=== PATIENT | male | born 1940 ===

== ENCOUNTER 2021-04-02 13:13 | Emergency (ER) | payer MEDICARE, BC ==
[2021-04-02] MEDS: HYDROmorphone 2 MG/ML SDV IVPUSH ONE ×2 (13:38→13:45)
--- NOTE | 2021-04-02 16:11 | EDM.PDOC ---
ED HPI GENERAL MEDICAL PROBLEM - General Chief Complaint: Chest Pain Stated Complaint: CHEST PAIN Time Seen by Provider: 04/02/21 14:23 - History of Present Illness INITIAL COMMENTS - FREE TEXT/NARRATIVE: Pt comes in with C/O chest pain that started after eating a late breakfast today. He states the pain is bad and he has been vomiting also. He did take 2 Nitro which helped his pain. He was just seen in the ER in [facility] for a workup for UTI 2 days ago. He does have hx of chest pain, but not usually this bad. He has had an HI 2 yrs ago, but did not get any stents. 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 Chest Pain Score (Numeric/FACES): 10 - Related Data Allergies Allergy/AdvReac Type Severity Reaction Status Date / Time codeine Allergy Other Verified 04/02/21 14:08 morphine Allergy Other Verified 04/02/21 14:08 Home Meds: Home Meds Aspirin 325 mg PO DAILY 04/02/21 [History] Cholecalciferol (Vitamin D3) [Vitamin D3] 50 mcg PO BID 04/02/21 [History] Ciprofloxacin HCl [Cipro] 500 mg PO BID 04/02/21 [History] Glimepiride 4 mg PO BIDMEALS 04/02/21 [History] Midodrine 5 mg PO TID 04/02/21 [History] Nitroglycerin [Nitrostat] 0.4 mg SL Q4HR 04/02/21 [History] PARoxetine HCL [Paroxetine HCl] 40 mg PO DAILY 04/02/21 [History] buPROPion [Wellbutrin SR] 150 mg PO DAILY 04/02/21 [History] metFORMIN [Glucophage] 500 mg PO BID 04/02/21 [History] ED ROS GENERAL - Review of Systems Review Of Systems: Comprehensive ROS is negative, except as noted in HPI. Cardiovascular: Reports: Chest Pain GI/Abdominal: Reports: Vomiting ED EXAM, GENERAL - Physical Exam Exam: See Below Free Text/Narrative:: The pt vomited once here in the ER when arriving. He was given Dilaudid which controlled his pain well. EKG does not she any ST elevation or depression with NSR. IV was started - Zofran was given. Pt's condition continued to improve over the next 20 minutes or so. Labs show a low CO2 level, otherwise are nml. Trop is negative. He will be monitored here as an ER hold, and will repeat the Troponin in 4 hours. I think he may be dealing with Angina, but will discuss further after repeat tests are done. Course - Vital Signs Last Recorded V/S: Last Vital Signs Temp 97.8 F 04/02/21 13:15 Pulse 100 04/02/21 17:58 Resp 14 04/02/21 17:58 BP 169/83 H 04/02/21 18:18 Pulse Ox 93 L 04/02/21 17:58 - Orders/Labs/Meds Orders: Active Orders 24 hr Category Date Time Status EKG Documentation Completion [RC] ASDIRECTED Care 04/02/21 14:37 Active Chest 1V Frontal [CR] Stat Exams 04/02/21 13:29 Taken EKG 12 Lead [EK] Routine Ther 04/02/21 14:36 Ordered EKG 12 Lead [EK] Routine Ther 04/02/21 17:30 Ordered EKG 12 Lead [EK] Stat Ther 04/02/21 13:28 Ordered Labs: Laboratory Tests 04/02/21 04/02/21 04/02/21 Range/Units 13:25 13:28 13:28 WBC 13.0 H (4.0-11.0) K/uL RBC 3.99 L (4.50-6.50) M/uL Hgb 12.1 L (13.0-18.0) g/dL Hct 36.7 L (40.0-54.0) % MCV 92 (76-96) fL MCH 30.3 (27.0-32.0) pg MCHC 33.0 (31.0-35.0) g/dL RDW 13.5 (11.0-16.0) % Plt Count 322 (150-400) K/uL MPV 9.8 (6.0-10.0) fL Neut % (Auto) 58.5 (45.0-70.0) % Lymph % (Auto) 30.9 (20.0-40.0) % Harper % (Auto) 8.5 (3.0-10.0) % Eos % (Auto) 1.9 (1.0-5.0) % Baso % (Auto) 0.2 (0.0-0.5) % Neut # (Auto) 7.59 H (2.00-7.50) K/uL Lymph # (Auto) 4.02 H (1.50-4.00) K/uL Harper # (Auto) 1.11 H (0.20-0.80) K/uL Eos # (Auto) 0.25 (0.04-0.40) K/uL Baso # (Auto) 0.03 (0.02-0.10) K/uL PT 10.1 (9.0-11.5) sec INR 1.0 (1.0-3.5) Sodium (136-145) mmol/L Potassium (3.5-5.1) mmol/L Chloride (98-107) mmol/L Carbon Dioxide (21.0-32.0) mmol/L Anion Gap (5.0-15.0) mmol/L BUN (8-26) mg/dL Creatinine (0.70-1.30) mg/dL Est Cr Clr Drug Dosing Estimated GFR (MDRD) (>60) MLS/MIN BUN/Creatinine Ratio (6-25) Glucose (74-100) mg/dL POC Glucose 223 H (74-110) mg/dL Calcium (8.5-10.1) mg/dL Total Bilirubin (0.0-1.0) mg/dL AST (15-37) U/L ALT (12-78) U/L Alkaline Phosphatase (46-116) U/L Troponin I (0.000-0.060) ng/mL Total Protein (6.4-8.2) g/dL Albumin (3.4-5.0) g/dL Globulin (2.2-4.2) g/dL Albumin/Globulin Ratio (0.8-2.0) 04/02/21 04/02/21 Range/Units 13:28 17:30 WBC (4.0-11.0) K/uL RBC (4.50-6.50) M/uL Hgb (13.0-18.0) g/dL Hct (40.0-54.0) % MCV (76-96) fL MCH (27.0-32.0) pg MCHC (31.0-35.0) g/dL RDW (11.0-16.0) % Plt Count (150-400) K/uL MPV (6.0-10.0) fL Neut % (Auto) (45.0-70.0) % Lymph % (Auto) (20.0-40.0) % Harper % (Auto) (3.0-10.0) % Eos % (Auto) (1.0-5.0) % Baso % (Auto) (0.0-0.5) % Neut # (Auto) (2.00-7.50) K/uL Lymph # (Auto) (1.50-4.00) K/uL Harper # (Auto) (0.20-0.80) K/uL Eos # (Auto) (0.04-0.40) K/uL Baso # (Auto) (0.02-0.10) K/uL PT (9.0-11.5) sec INR (1.0-3.5) Sodium 136 (136-145) mmol/L Potassium 4.7 (3.5-5.1) mmol/L Chloride 103 (98-107) mmol/L Carbon Dioxide 14.5 L* (21.0-32.0) mmol/L Anion Gap 23.2 H (5.0-15.0) mmol/L BUN 29 H (8-26) mg/dL Creatinine 2.10 H (0.70-1.30) mg/dL Est Cr Clr Drug Dosing TNP Estimated GFR (MDRD) 31 L (>60) MLS/MIN BUN/Creatinine Ratio 13.8 (6-25) Glucose 237 H (74-100) mg/dL POC Glucose (74-110) mg/dL Calcium 9.6 (8.5-10.1) mg/dL Total Bilirubin 0.5 (0.0-1.0) mg/dL AST 31 (15-37) U/L ALT 25 (12-78) U/L Alkaline Phosphatase 83 (46-116) U/L Troponin I < 0.017 0.059 D (0.000-0.060) ng/mL Total Protein 7.8 (6.4-8.2) g/dL Albumin 3.5 (3.4-5.0) g/dL Globulin 4.3 H (2.2-4.2) g/dL Albumin/Globulin Ratio 0.8 (0.8-2.0) Meds: Medications Discontinued Medications Generic Name Dose Route Start Last Admin Trade Name Katia PRN Reason Stop Dose Admin Isosorbide Mononitrate 30 mg 04/02/21 18:17 04/02/21 18:18 Isosorbide Mononitrate 30 Mg Tab.Er PO 04/02/21 18:18 30 mg ONETIME ONE Administration Isosorbide Mononitrate Confirm 04/02/21 18:17 04/02/21 18:18 Isosorbide Mononitrate 30 Mg Tab.Er Administered 04/02/21 18:18 Not Given Dose 30 mg .ROUTE .STK-MED ONE Departure - Departure Time of Disposition: 18:30 Disposition: Home, Self-Care 01 Condition: Good Clinical Impression: Angina pectoris Referrals: PCP,None [Primary Care Provider] - Forms: ED Department Discharge Additional Instructions: Start Imdur 30 mg daily. Light duty activity as tolerated. Re check in the clinic this week. Sepsis Event Note (ED) - Focused Exam Vital Signs: Vital Signs Temp Pulse Resp BP BP Pulse Ox 04/02/21 18:18 169/83 H 04/02/21 17:58 100 14 95/59 L 93 L 04/02/21 14:45 90 12 111/61 93 L 04/02/21 14:15 97 19 102/55 L 94 L 04/02/21 14:00 104 H 13 105/61 94 L 04/02/21 13:45 102 H 13 103/61 04/02/21 13:30 108 H 13 112/61 95 04/02/21 13:15 97.8 F 121 H 20 143/82 H 97 - My Orders Last 24 Hours: My Active Orders 04/02/21 13:28 EKG 12 Lead [EK] Stat 04/02/21 13:29 Chest 1V Frontal [CR] Stat 04/02/21 14:36 EKG 12 Lead [EK] Routine 04/02/21 14:37 EKG Documentation Completion [RC] ASDIRECTED 04/02/21 17:30 EKG 12 Lead [EK] Routine - Assessment/Plan Last 24 Hours: My Active Orders 04/02/21 13:28 EKG 12 Lead [EK] Stat 04/02/21 13:29 Chest 1V Frontal [CR] Stat 04/02/21 14:36 EKG 12 Lead [EK] Routine 04/02/21 14:37 EKG Documentation Completion [RC] ASDIRECTED 04/02/21 17:30 EKG 12 Lead [EK] Routine
[2021-04-02] MEDS ORDERED: Isosorbide Mononitrate 30 MG Tab.ER ONE (18:17)
[2021-04-02] MEDS ORDERED: Isosorbide Mononitrate 30 MG Tab.ER PO ONE (18:17)
--- NOTE | 2021-04-03 08:18 | CR ---
Date of Service: 04/02/21 Clinical Data: Chest pain. Portable Chest: No priors. The heart size is normal. There is calcification of the aortic arch. The lungs are clear. No pneumothorax. No pleural effusions. No evidence of acute intrathoracic disease. [id number] [facility]
== END 2021-04-02 18:30 | disposition home or self-care (01) ==
LOC: LB.ED 13:13
DX: I20.9 Angina pectoris, unspecified (principal); Z88.5 Allergy status to narcotic agent; Z79.82 Long term (current) use of aspirin; Z79.899 Other long term (current) drug therapy
CPT/HCPCS: 36415; 71045; 80053; 82947; 84484; 85025; 85610; 93005; 96374; 99285; A9270; J1170

== ENCOUNTER 2021-04-07 09:26 | Emergency (ER) | payer MEDICARE, BC ==
--- NOTE | 2021-04-07 16:30 | EDM.PDOC ---
ED HPI GENERAL MEDICAL PROBLEM - General Chief Complaint: Lower Extremity Injury/Pain Stated Complaint: FALL/ LEFT HIP PAIN Time Seen by Provider: 04/07/21 09:28 Source of Information: Reports: Patient History Limitations: Reports: No Limitations - History of Present Illness INITIAL COMMENTS - FREE TEXT/NARRATIVE: 81-year-old male presents to the ED complaining of left hip pain that started yesterday after he fell 3 times while using his walker unknown why he fell did not get dizzy lightheaded. Patient was only on the ground for a few minutes. There was a family member in the home that witnessed the fall. He did strike his head but he has no head neck or back pain. Patient is unable to bear weight on the leg describes the pain as sharp. The pain makes him sweaty and nauseated. Patient was in the emergency department last Friday for pulmonary edema. Patient has a history of heart, kidney, lung issues. Positive for bruising easily, decreased oral intake no appetite, black stool, and neuropathy. Patient denies chest pain, shortness of breath, loss of consciousness, vomiting, diaphoresis blurred vision or vision changes. Left Hip Pain Score (Numeric/FACES): 10 - Related Data Allergies Allergy/AdvReac Type Severity Reaction Status Date / Time codeine Allergy Other Verified 04/07/21 10:12 morphine Allergy Other Verified 04/07/21 10:12 Home Meds: Home Meds Aspirin 325 mg PO DAILY 04/02/21 [History] Cholecalciferol (Vitamin D3) [Vitamin D3] 50 mcg PO BID 04/02/21 [History] Ciprofloxacin HCl [Cipro] 500 mg PO BID 04/02/21 [History] Glimepiride 4 mg PO BIDMEALS 04/02/21 [History] Midodrine 5 mg PO TID 04/02/21 [History] Nitroglycerin [Nitrostat] 0.4 mg SL Q4HR 04/02/21 [History] PARoxetine HCL [Paroxetine HCl] 40 mg PO DAILY 04/02/21 [History] buPROPion [Wellbutrin SR] 150 mg PO DAILY 04/02/21 [History] metFORMIN [Glucophage] 500 mg PO BID 04/02/21 [History] Past Medical History Cardiovascular History: Reports: Angina, Other (See Below) Other Cardiovascular History: hypotension Respiratory History: Reports: COPD Genitourinary History: Reports: Urostomy Neurological History: Reports: Other (See Below) Other Neuro History: dementia Psychiatric History: Reports: Anxiety, Depression Endocrine/Metabolic History: Reports: Diabetes, Type II Hematologic History: Reports: B12 Deficiency Oncologic (Cancer) History: Reports: Prostate - Past Surgical History Cardiovascular Surgical History: Reports: None GI Surgical History: Reports: Colostomy Male Surgical History: Reports: Prostatectomy Musculoskeletal Surgical History: Reports: Hip Replacement Other Musculoskeletal Surgeries/Procedures:: left hip, partial right broken Social & Family History - Tobacco Use Tobacco Use Status *Q: Never Tobacco User Years of Tobacco use: 3 Used Tobacco, but Quit: No - Caffeine Use Caffeine Use: Reports: Coffee - Recreational Drug Use Recreational Drug Use: No Review of Systems - Review of Systems Review Of Systems: See Below Constitutional: Reports: Other (Falls) Eyes: Reports: No Symptoms Ears: Reports: No Symptoms Nose: Reports: No Symptoms Mouth/Throat: Reports: No Symptoms Respiratory: Reports: Shortness of Breath, Other (Pulmonary edema) Cardiovascular: Reports: Chest Pain, Other (Hypotension) GI/Abdominal: Reports: Nausea, Other (Colostomy bag) Genitourinary: Reports: Other (Urostomy bag) Musculoskeletal: Reports: Other (Left hip pain, decreased range of motion) Skin: Reports: No Symptoms Neurological: Reports: No Symptoms Psychiatric: Reports: No Symptoms ED EXAM, GENERAL - Physical Exam Exam: See Below Free Text/Narrative:: 81-year-old male found lying supine in bay 1 on stretcher. Patient appears to be in moderate distress due to pain. Patient is alert and oriented 3/3 GCS 4 5 6. No obvious trauma. Speaking full sentences General Appearance: Alert, WD/WN, Moderate Distress Eye Exam: Bilateral Eye: EOMI, PERRL Ears: Normal External Exam, Hearing Grossly Normal Nose: No Blood. No: Nasal Tenderness, Nasal Deformity, Nasal Swelling Throat/Mouth: Normal Lips, Normal Voice, No Airway Compromise Head: Atraumatic, Normocephalic. No: Facial Swelling, Facial Tenderness Neck: Normal Inspection, Supple, Non-Tender, Full Range of Motion. No: Tender Midline Respiratory/Chest: No Respiratory Distress, Lungs Clear, Normal Breath Sounds, No Accessory Muscle Use, Chest Non-Tender. No: Crackles, Rales, Rhonchi, Wheezing, Stridor, Accessory Muscle Use Cardiovascular: Normal Peripheral Pulses, Regular Rate, Rhythm, No Edema, No Gallop, No JVD, No Murmur, No Rub Peripheral Pulses: 2+: Dorsalis Pedis (L) (Male) Exam: Deferred Rectal (Males) Exam: Deferred Back Exam: Normal Inspection. No: Paraspinal Tenderness, Vertebral Tenderness Extremities: Other (Left hip pain upon palpation and movement. No obvious deformity, edema, erythema, heat.) Neurological: Alert, Oriented, CN II-XII Intact, Normal Cognition Psychiatric: Normal Affect, Normal Mood Skin Exam: Warm, Dry, Pallor Course - Vital Signs Last Recorded V/S: Last Vital Signs Temp 97.6 F 04/07/21 09:35 Pulse 70 04/07/21 09:35 Resp 18 04/07/21 09:35 BP 116/54 L 04/07/21 09:35 Pulse Ox 96 04/07/21 09:35 - Orders/Labs/Meds Orders: Active Orders 24 hr Category Date Time Status Hip Min 2V or 3V w Pelvis Lt [CR] Stat Exams 04/07/21 10:00 Taken Hemoccult [OCCULT BLOOD DIAGNOSTIC] [OP] Stat Lab 04/07/21 11:00 Ordered Labs: Laboratory Tests 04/07/21 04/07/21 Range/Units 11:01 11:01 WBC 10.0 D (4.0-11.0) K/uL RBC 3.97 L (4.50-6.50) M/uL Hgb 12.0 L (13.0-18.0) g/dL Hct 36.7 L (40.0-54.0) % MCV 92 (76-96) fL MCH 30.2 (27.0-32.0) pg MCHC 32.7 (31.0-35.0) g/dL RDW 13.5 (11.0-16.0) % Plt Count 235 D (150-400) K/uL MPV 9.3 (6.0-10.0) fL Neut % (Auto) 74.6 H (45.0-70.0) % Lymph % (Auto) 14.3 L (20.0-40.0) % [place] % (Auto) 7.9 (3.0-10.0) % Eos % (Auto) 3.0 (1.0-5.0) % Baso % (Auto) 0.2 (0.0-0.5) % Neut # (Auto) 7.47 (2.00-7.50) K/uL Lymph # (Auto) 1.43 L (1.50-4.00) K/uL [place] # (Auto) 0.79 (0.20-0.80) K/uL Eos # (Auto) 0.30 (0.04-0.40) K/uL Baso # (Auto) 0.02 (0.02-0.10) K/uL Sodium 137 (136-145) mmol/L Potassium 4.4 (3.5-5.1) mmol/L Chloride 106 (98-107) mmol/L Carbon Dioxide 23.7 D (21.0-32.0) mmol/L Anion Gap 11.7 (5.0-15.0) mmol/L BUN 30 H (8-26) mg/dL Creatinine 1.66 H D (0.70-1.30) mg/dL Est Cr Clr Drug Dosing 41.27 mL/min Estimated GFR (MDRD) 40 L (>60) MLS/MIN BUN/Creatinine Ratio 18.1 (6-25) Glucose 119 H D (74-100) mg/dL Calcium 9.4 (8.5-10.1) mg/dL Departure - Departure Time of Disposition: 11:46 Disposition: Home, Self-Care 01 Condition: Good Clinical Impression: Fracture of pelvis - Discharge Information *PRESCRIPTION DRUG MONITORING PROGRAM REVIEWED*: No *COPY OF PRESCRIPTION DRUG MONITORING REPORT IN PATIENT FRANCES: No Instructions: Acetaminophen tablets or caplets Referrals: PCP,None [Primary Care Provider] - Forms: ED Department Discharge Additional Instructions: Take tylenol not Ibuprofen Follow up with orthopedics at [place] [facility]- Dr Reyes Use crutches with walking, NO WEIGHT BEARING TO LEFT HIP Sepsis Event Note (ED) - Evaluation Sepsis Screening Result: No Definite Risk - Focused Exam Vital Signs: Vital Signs Temp Pulse Resp BP Pulse Ox 04/07/21 09:35 97.6 F 70 18 116/54 L 96 - My Orders Last 24 Hours: My Active Orders 04/07/21 10:00 Hip Min 2V or 3V w Pelvis Lt [CR] Stat 04/07/21 11:00 Hemoccult [OCCULT BLOOD DIAGNOSTIC] [OP] Stat - Assessment/Plan Last 24 Hours: My Active Orders 04/07/21 10:00 Hip Min 2V or 3V w Pelvis Lt [CR] Stat 04/07/21 11:00 Hemoccult [OCCULT BLOOD DIAGNOSTIC] [OP] Stat Assessment:: Patient was seen for left hip pain conditions considered included hip fracture, pelvic fracture, device failure, osteoarthritis, rheumatoid arthritis, dislocation. Upon x-rays and orthopedic consultation with Dr. Walker from [facility] treatment path that was recommended was nonweightbearing on crutches, pain control with Tylenol follow-up with [facility] within a week. Patient was given Instructions to follow-up with orthopedics. Patient questions were answered to their satisfaction patient understood the treatment plan and agreed. Patient was discharged in stable condition
--- NOTE | 2021-04-09 07:43 | CR ---
Date of Service: 04/07/21 Clinical Data: left hip pain PELVIS AND LEFT HIP: No priors. The patient is status post bilateral total hip arthroplasty. There is a zone of lucency adjacent to the femoral component on the left suggesting the possibility of loosening or infection. Correlation with prior radiographs are recommended. The prostheses otherwise appear unremarkable. There are degenerative changes involving the SI joints and symphysis pubis. There is widening of the symphysis pubis. Clinical correlation or comparison with prior images is recommended. There is a rocky lucency in the left pelvis that extends to the left acetabulum. The possibility of a fracture should be considered. CT scan may be helpful. No other significant findings. [id number] [facility]
== END 2021-04-07 11:46 | disposition home or self-care (01) ==
LOC: LB.ED 09:26
DX: S32.9XXA Fracture of unspecified parts of lumbosacral spine and pelvis, initial encounter for closed fracture (principal); J44.9 Chronic obstructive pulmonary disease, unspecified; E11.9 Type 2 diabetes mellitus without complications; Z88.5 Allergy status to narcotic agent; Z79.82 Long term (current) use of aspirin; Z79.84 Long term (current) use of oral hypoglycemic drugs; Z79.899 Other long term (current) drug therapy; W18.30XA Fall on same level, unspecified, initial encounter; Y93.01 Activity, walking, marching and hiking
CPT/HCPCS: 36415; 73502-LT; 80048; 82272; 85025; 99283-25

== ENCOUNTER 2022-01-06 11:07 | Emergency (ER) | payer MEDICARE, BC ==
[2022-01-06] MEDS ORDERED: fentaNYL 100 MCG/2 ML SDV IVPUSH PRN (11:40)
[2022-01-06] MEDS: Ondansetron 4 MG/2 ML SDV IVPUSH ONE (11:40)
[2022-01-06] MEDS: HYDROmorphone 2 MG/ML Syringe IVPUSH ONE (11:42)
[2022-01-06] MEDS ORDERED: HYDROmorphone 2 MG/ML Syringe ONE (11:49)
[2022-01-06] MEDS ORDERED: Ondansetron 4 MG/2 ML SDV ONE (11:49)
[2022-01-06 12:21] LABS: ESTIMATED GFR 40 mL/min (>60)
[2022-01-06] MEDS ORDERED: Acetaminophen/HYDROcodone 325-5 MG Tab ONE (12:45)
== END 2022-01-06 12:57 | disposition home or self-care (01) ==
LOC: LB.ED 11:07
DX: N20.0 Calculus of kidney (principal); J44.9 Chronic obstructive pulmonary disease, unspecified; E11.9 Type 2 diabetes mellitus without complications; Z88.5 Allergy status to narcotic agent; Z88.6 Allergy status to analgesic agent; Z79.899 Other long term (current) drug therapy; Z79.82 Long term (current) use of aspirin; Z79.84 Long term (current) use of oral hypoglycemic drugs
CPT/HCPCS: 36415; 74176; 80053; 81001; 83605; 83690; 85025; 85610; 96374; 96375; 99283; 99284-25; A9270-GY

== ENCOUNTER 2022-02-11 11:31 | Emergency (ER) | payer MEDICARE, BC | END 2022-02-11 16:42 | disposition home or self-care (01) | LOC: LB.ED 11:31 | DX: R07.9 Chest pain, unspecified (principal) | CPT/HCPCS: 36415; 71045; 80053; 84484; 85025; 93005; 99285 ==

== ENCOUNTER 2022-05-31 14:47 | Emergency (ER) | payer MEDICARE, BC | END 2022-05-31 15:55 | disposition home or self-care (01) | LOC: LB.ED 14:47 | DX: M25.552 Pain in left hip (principal); E11.9 Type 2 diabetes mellitus without complications; J44.9 Chronic obstructive pulmonary disease, unspecified; I10 Essential (primary) hypertension; Z88.5 Allergy status to narcotic agent; Z79.82 Long term (current) use of aspirin; Z79.899 Other long term (current) drug therapy | CPT/HCPCS: 73502-LT; 99283 ==